=== PATIENT | female | born 1985 | race Caucasian/White ===

== ENCOUNTER → 2016-11-07 | Outpatient (CLI) | payer OTHER ==
--- NOTE | 2016-11-07 13:43 | CT ---
EXAMINATION TYPE: CT lower extremity LT w con DATE OF EXAM: 11/07/2016 1:29 PM COMPARISON: NONE HISTORY: Patient complains of left medial leg mass and pain post ORIF. CT DLP: 767.5 mGycm Automated exposure control for dose reduction was used. CONTRAST: Performed with IV Contrast, patient injected with 100 mL of Omnipaque 300. FINDINGS: There is skin thickening and abnormal attenuation within the medial margin the subcutaneous fat at th e level of the distal diaphysis of the tibia. There is lucency seen throughout the medullary cavity w ith a cortical break at this level which may have been related to previous surgery. There is a screw which is seen to extend into the medullary cavity anteromedially at the level of the distal tibia. There is also artifact obscures the soft tissues. This may be palpable as it is outsid e the cortex and related to the orthopedic plate. Remaining osseous structures intact. There is soft tissue edema along the medial margin of the ankle joint. No enhancing mass seen. Artifa ct from the metallic hardware is seen. IMPRESSION: POSTSURGICAL CHANGE NOTED WITH ARTIFACT NOTED FROM THE METALLIC HARDWARE. THERE DOES APPEAR TO BE ABN ORMAL SOFT TISSUE, SUBCUTANEOUS ATTENUATION ALONG THE MEDIAL MARGIN OF THE DISTAL TIBIA AND ANKLE GIANFRANCO NT APPEARS MOST LIKELY POSTINFLAMMATORY OR RELATED TO SCAR FROM PREVIOUS SURGERY. CORRELATE CLINICALL Y TO EXCLUDE INFECTIOUS ETIOLOGY. A CORTICAL DEFECT INVOLVING THE MEDIAL MARGIN OF THE DISTAL TIBIA MAY BE POSTSURGICAL WITH DIFFUSE GILBERTO CENCY THROUGHOUT THE MEDULLARY CAVITY WHICH ALSO MAY BE POSTSURGICAL RATHER THAN POSTINFECTIOUS OR RE LATED TO OSSEOUS LESION. CORRELATE CLINICALLY.
== END | disposition home or self-care (01) ==
LOC: RADCTMAIN 12:55
PROVIDERS: ATTEND Family Medicine
DX: M89.8X6 Other specified disorders of bone, lower leg (principal); R93.7 Abnormal findings on diagnostic imaging of other parts of musculoskeletal system; M79.605 Pain in left leg; Z98.890 Other specified postprocedural states
CPT/HCPCS: 73701; Q9967

== ENCOUNTER 2019-01-26 15:16 | Emergency (ER) | payer OTHER ==
[2019-01-26 15:37] VITALS: BP 124/79; PULSE 101; TEMP 99.9
[2019-01-26] MEDS ORDERED: ACETAMINOPHEN ORAL SUSP 160 MG/5 ML CUP PO ONE (15:49)
--- NOTE | 2019-01-26 16:09 | XR ---
EXAMINATION TYPE: XR chest 2V DATE OF EXAM: 01/26/2019 COMPARISON: None HISTORY: 33-year-old female with pain, flulike symptoms TECHNIQUE: PA and lateral views FINDINGS: The cardiomediastinal silhouette, aorta, and pulmonary vasculature are within normal limits. Lungs an d pleural spaces are clear. IMPRESSION: No acute cardiopulmonary process.
[2019-01-26 16:15] VITALS: RESP 16
--- NOTE | 2019-01-26 16:56 | ED ---
General Adult HPI - General Chief complaint: Upper Respiratory Infection Stated complaint: Possible Flu Time Seen by Provider: 01/26/19 15:44 Source: patient, RN notes reviewed Mode of arrival: ambulatory - History of Present Illness Initial comments: 33-year-old female presents for multiple complaints. Patient complains of a cough as well as body aches and chills that began this morning. Patient states her family has had influenza. Patient also completes an abscess on her left side. States this is draining. She states it started off as a pimple and then appeared to open and scabbed.Patient has no other complaints at this time including shortness of breath, chest pain, abdominal pain, nausea or vomiting, headache, or visual changes. - Related Data Previous Rx's Medication Instructions Recorded Albuterol Inhaler [Ventolin Hfa 1 - 2 puff INHALATION Q6HR PRN #1 01/26/19 Inhaler] inhaler Cephalexin [Keflex Susp] 500 mg PO Q6HR 7 Days ml 01/26/19 Oseltamivir 6Mg/ml Oral Susp 75 mg PO BID 5 Days ml 01/26/19 [Tamiflu] Sulfamethox-Tmp 200-40Mg/5Ml 800 mg PO Q12HR 7 Days ml 01/26/19 [Bactrim Suspension] Allergies Allergy/AdvReac Type Severity Reaction Status Date / Time Iodinated Contrast- Oral and Allergy Anaphylaxis Verified 01/26/19 15:37 IV Dye Review of Systems ROS Statement: Those systems with pertinent positive or pertinent negative responses have been documented in the HPI. ROS Other: All systems not noted in ROS Statement are negative. Past Medical History Past Medical History: No Reported History History of Any Multi-Drug Resistant Organisms: None Reported Past Surgical History: Orthopedic Surgery Additional Past Surgical History / Comment(s): ankle Past Psychological History: No Psychological Hx Reported Smoking Status: Never smoker Past Alcohol Use History: None Reported Past Drug Use History: None Reported General Exam General appearance: alert, in no apparent distress Head exam: Present: atraumatic, normocephalic, normal inspection Eye exam: Present: normal appearance, PERRL, EOMI. Absent: scleral icterus, conjunctival injection, periorbital swelling ENT exam: Present: normal exam, normal oropharynx, mucous membranes moist, TM's normal bilaterally, normal external ear exam Neck exam: Present: normal inspection, full ROM. Absent: tenderness, meningismus, lymphadenopathy Respiratory exam: Present: normal lung sounds bilaterally. Absent: respiratory distress, wheezes, rales, rhonchi, stridor Cardiovascular Exam: Present: regular rate, normal rhythm, normal heart sounds. Absent: systolic murmur, diastolic murmur, rubs, gallop, clicks Neurological exam: Present: alert, oriented X3, CN II-XII intact Psychiatric exam: Present: normal affect, normal mood Skin exam: Present: other (Patient has an abscess about 1 cm by set 1 cm on the left anterior lower ribs with some surrounding erythema about 3 cm x 2 cm. This is already draining and opened.) Course Vital Signs 01/26/19 01/26/19 15:35 16:01 Temperature 99.9 F H Pulse Rate 101 H Respiratory 18 16 Rate Blood Pressure 124/79 O2 Sat by Pulse 99 Oximetry Medical Decision Making - Medical Decision Making 33-year-old female presents for multiple complaints. Patient complaining of fever with cough congestion and body aches. Patient is influenza a positive. Chest x-ray negative for pneumonia. Patient given Tamiflu. Patient also many of abscess on the left torso. States this started off as a pimple and is now open and draining. Patient states it is spontaneously draining. I did offer to I&D this abscess the patient would rather apply warm compresses and take antibiotic. I did recommend that if abscess is worsening to return here for I&D. Patient will be given Bactrim and Keflex. Patient is to follow up outpatient for this and return here if she has any worsening symptoms. Patient requests albuterol inhaler and discharged sitting this has helped her in the past however denies any history of asthma or COPD. - Lab Data Lab Results 01/26/19 Range/Units 15:45 Influenza Type A RNA Not Detected (Not Detectd) Influenza Type B (PCR) Detected H (Not Detectd) Disposition Clinical Impression: Abscess, Influenza Disposition: HOME SELF-CARE Condition: Good Instructions (If sedation given, give patient instructions): Influenza (ED), Abscess (ED), Warm Compress or Soak (ED) Additional Instructions: Please take Tamiflu as directed. Take Motrin or Tylenol for fever. Take antibiotics for abscess and apply warm compresses to the area. Follow-up with primary care in 1-2 days. Return here to the emergency department if you have any worsening symptoms. Prescriptions: Sulfamethox-Tmp 200-40Mg/5Ml [Bactrim Suspension] 800 mg PO Q12HR 7 Days ml Cephalexin [Keflex Susp] 500 mg PO Q6HR 7 Days ml Oseltamivir 6Mg/ml Oral Susp [Tamiflu] 75 mg PO BID 5 Days ml Albuterol Inhaler [Ventolin Hfa Inhaler] 1 - 2 puff INHALATION Q6HR PRN #1 inhaler PRN Reason: Shortness Of Breath Is patient prescribed a controlled substance at d/c from ED?: No Referrals: Cristofer Ayon MD [Primary Care Provider] - 1-2 days Time of Disposition: 16:56
== END 2019-01-26 17:41 | disposition home or self-care (01) ==
LOC: EC 15:16
DX: J10.1 Influenza due to other identified influenza virus with other respiratory manifestations (principal); L02.213 Cutaneous abscess of chest wall; Z91.041 Radiographic dye allergy status
CPT/HCPCS: 71046; 87502; 99283